=== PATIENT | male | born 1940 | race Caucasian/White ===

== ENCOUNTER 2018-10-30 00:57 | Inpatient (IN) | payer OTHER ==
[~2018-10-30] VITALS: Ht 157.5 cm; Wt 61.8 kg
[2018-10-30 01:00] VITALS: BP 176/83
--- NOTE | 2018-10-30 01:00 | NUR ---
PT AXOX4 AND AMBULATORY. GOOD HISTORIAN AND ACCOMPANIED BY SON AT BEDSIDE. CP 01/16 NONRADIATING. WILL CONTINUE TO MONITOR.
[2018-10-30] MEDS ORDERED: ASPIRIN 81 MG TAB.CHEW PO ONE (01:05)
[2018-10-30] MEDS ORDERED: NACL 0.9% 1,000 ML IV ONE (01:05)
[2018-10-30] MEDS ORDERED: NITROGLYCERIN 2% 1 GM PKT TP ONE (01:15)
[2018-10-30] MEDS ORDERED: METOPROLOL 5 MG/5 ML VIAL IVP ONE (01:15)
[2018-10-30] MEDS ORDERED: KETOROLAC 30 MG/ML VIAL IVP ONE (01:15)
[2018-10-30 01:17] LABS: BASOPHILS % (AUTO) 0.9 % (0.0-2.0); EOSINOPHILS # (AUTO) 0.1 K/uL (0-0.4); EOSINOPHILS % (AUTO) 2.2 % (0.0-4.0); HEMATOCRIT 34.5 % (36-52); HEMOGLOBIN 11.6 g/dL (12.0-18.0); LYMPHOCYTES # (AUTO) 1.8 K/uL (2.0-11.5); LYMPHOCYTES % (AUTO) 38.4 % (20.5-51.1); MEAN CORPUSCULAR HEMOGLOBIN 33 pg (27-31); MEAN CORPUSCULAR HGB CONC 34 g/dL (33-37); MEAN CORPUSCULAR VOLUME 96.7 fL (80-94); MONOCYTES # (AUTO) 0.5 K/uL (0.8-1.0); NEUTROPHILS # (AUTO) 2.3 K/uL (1.8-7.7); NEUTROPHILS % (AUTO) 48.5 % (42.2-75.2); PLATELET COUNT (AUTO) 161 K/uL (140-450); RED BLOOD CELL COUNT(AUTO) 3.57 MIL/uL (4.20-6.10); RED CELL DISTRIBUTION WIDTH 13.4 % (11.6-13.7); WHITE BLOOD COUNT (AUTO) 4.7 K/uL (4.8-10.8)
[2018-10-30 01:25] LABS: ANION GAP 9.1 (8-16); CARBON DIOXIDE 30.3 mmol/L (21-32); CHLORIDE 101 mmol/L (98-107); CREATININE 1.5 mg/dL (0.7-1.3); GLUCOSE 95 mg/dL (74-106); POTASSIUM 4.4 mmol/L (3.5-5.1); SODIUM SERUM 136 mmol/L (136-145); UREA NITROGEN, BLOOD 43 mg/dL (7-18)
[2018-10-30 01:31] LABS: ALBUMIN 3.7 g/dL (3.4-5.0); ASPARTATE AMINOTRANSFERASE 30 U/L (15-37); TOTAL BILIRUBIN 0.3 mg/dL (0.0-1.0)
[2018-10-30 01:35] LABS: PROTHROMBIN TIME 9.9 secs (10.8-13.4)
[2018-10-30] MEDS ORDERED: VITD1000 PO (01:56)
[2018-10-30] MEDS ORDERED: NIFE30TE5 PO ×2 (01:56→18:01)
[2018-10-30] MEDS ORDERED: DOL10 PO (01:56)
[2018-10-30] MEDS ORDERED: LEVO0.2T5 PO (01:56)
[2018-10-30] MEDS ORDERED: LISI-420 PO ×2 (01:56→18:01)
[2018-10-30] MEDS ORDERED: VOL25 PO (01:56)
[2018-10-30] MEDS ORDERED: DUTA0.5S2 PO (01:56)
--- NOTE | 2018-10-30 02:15 | NUR ---
ADMITTED A 77M AT [facility]. CAME BY WOODY AND ACCOMPANIED BY SON WITH CC OF CHEST PAIN SINCE 1999 LAST NIGHT. PT IS ON TELEMETRY BED-SR/BBB. AWAKE,ALERT AND ORIENTED X4. AMBULATORY. DENIES ANY DISCOMFORT NOR PAIN AT THIS TIME. PLACED COMFORTABLY IN BED. HAS HL ON THE RT FA G#[id number]. CLEAR AND PATENT. ORIENTED TO HOSPITAL ROUTINES. CALL LIGHT PLACED WITHIN EASY REACH, SIDE RAILS ARE UP X2. WILL CONTINUE TO MONITOR.
--- NOTE | 2018-10-30 02:24 | NUR ---
PT ADMITTED TO ROOM 128A AND ACCOMPANIED BY SONIZAIAH. PERSONAL BELONGINGS WITH PATIENT. PT AXOX4 AND AMBULATORY. REPORT GIVEN TO COURTNEY FRY.
[2018-10-30] MEDS ORDERED: ACETAMINOPHEN 325 MG TAB PO PRN (02:30)
[2018-10-30] MEDS ORDERED: MORPHINE SULFATE 2 MG/ML SYR IVP PRN (02:30)
[2018-10-30] MEDS ORDERED: NITROGLYCERIN 0.4 MG TAB SL PRN (02:30)
[2018-10-30] MEDS ORDERED: ONDANSETRON 4 MG/2 ML VIAL IVP PRN (02:30)
--- NOTE | 2018-10-30 03:00 | NUR ---
COLLECTED MRSA NARES SPECIMEN . SEND TO LAB.
[2018-10-30 05:00] VITALS: BP 151/86
[2018-10-30] MEDS ORDERED: INFLUENZA VIRUS VACCINE QUAD 0.5 ML SYR IMVAC PRN (05:25)
--- NOTE | 2018-10-30 06:00 | NUR ---
PT IS AWAKE. AM PO MEDS GIVEN. NO C/O ANY DISCOMFORT NOR PAIN NOTED.
[2018-10-30] MEDS ORDERED: LEVOTHYROXINE 0.1 MG TAB PO SCH (06:30)
--- NOTE | 2018-10-30 07:29 | NUR ---
ENDORSED PT IN STABLE CONDITION TO AM NURSE FOR CONTINUITY OF CARE.
--- NOTE | 2018-10-30 07:30 | NUR ---
REPORT RECEIVED FROM DENTAL HYGIENE INSTRUCTOR NURSE, PT AWAKE READING, SMILING, RESP EVEN UNLABORED ON RA, SKIN WARM DRY COLOR WNL, REVIEWED POC, PT DENIES CHEST PAIN, SOB OR OTHER DISCOMFORT, ALL SAFETY MEASURES IN PLACE, WILL CONTINUE TO MONITOR.
[2018-10-30 08:00] VITALS: BP 178/97
--- NOTE | 2018-10-30 08:00 | NUR ---
PT SITTING UP EATING BREAKFAST.
--- NOTE | 2018-10-30 08:17 | NUR ---
PATIENT HAS BEEN SCREENED AND CATEGORIZED MODERATE NUTRITION RISK. PATIENT WILL BE SEEN WITHIN 3-5 DAYS OF ADMISSION. 11/01/18DMITRI [address]
[2018-10-30] MEDS ORDERED: METHADONE 10 MG TAB PO SCH (09:00)
[2018-10-30] MEDS ORDERED: DICLOFENAC 25 MG TABEC PO SCH (09:00)
[2018-10-30] MEDS ORDERED: ECOTRIN 81 MG TABEC PO SCH (09:00)
[2018-10-30] MEDS ORDERED: LISINOPRIL 20 MG TAB PO SCH (09:00)
[2018-10-30] MEDS ORDERED: DUTASTERIDE 0.5 MG PO SCH (09:00)
[2018-10-30] MEDS ORDERED: CLINICAL MONITORING MC SCH (09:00)
[2018-10-30] MEDS ORDERED: ENOXAPARIN 40 MG/0.4 ML SYR SUBQ SCH (09:00)
[2018-10-30] MEDS ORDERED: CHOLECALCIFEROL 1,000 IU TAB PO SCH (09:00)
--- NOTE | 2018-10-30 09:45 | NUR ---
PT'S SON AT BEDSIDE, PT AWAKE ALERT CONVERSING WITHOUT PROBLEM.
[2018-10-30 10:00] LABS: CHOL/HDL RATIO 1.9 (1-4.5)
--- NOTE | 2018-10-30 10:00 | NUR ---
PER PHARMACY REQUEST, DUTASTERIDE IS NOT FORMULARY HERE, PT'S SON WILL BRING HOME SUPPLY IN LATER TODAY, WELL HOME SUPPLY OF METHADONE.
--- NOTE | 2018-10-30 10:11 | NUR ---
[facility] [phone] CALLED TO VERIFY METHADONE DOSAGE, THEY WILL FAX INFORMATION TO US
[2018-10-30 12:00] VITALS: BP 152/85
[2018-10-30] MEDS ORDERED: METHADONE 70 MG PO SCH (15:00)
--- NOTE | 2018-10-30 15:01 | NUR ---
Substance Abuse Counselor Margot and I met patient ,son Nikolay and daughter in law Harper at bedside. We explained to patient that we will obtain and verify information with him. We obtained following information from the patient ,son Nikolay and daughter in law Harper. Both son Nikolay and daughter in law Harper help patient with ADLs at home. Patient lives with them. Patient has an Advance Directive and Harper is the designated person. Copy of Advance Directive is at the pcp�s office and we asked Harper to provide us with a copy and she verbalized understanding. Patient goes to [facility] in [place]. He goes there every other Monday. Patient goes to [facility] in [place] and both son and daughter in law help him to picker his medications without any difficulty. They also help him prepare his medications weekly using the weekly pill container. Patient also verbalized that he will follow-up with his PCP Dr Blood after discharge and both daughter in law and son will provide him with transportation. Patient has a cane at home and he uses it as needed.. Patient was not receiving any home health services prior to hospitalization and was not using any DME at home. Instructed patient and family to provide discharge instructions to Dr Blood during follow-up visit, patient and family verbalized understanding. Patient has no questions and concerns at this time. Patient also verbalized that he is happy with his doctor and nurses for the care he received here at [facility]. Emphasized to patient and family to let us know if needed help, or if there�s any questions and concerns while he is here in the hospital.
[2018-10-30 16:00] VITALS: BP 159/93
[2018-10-30] MEDS ORDERED: NIFEdipine 30 MG TABER PO SCH (17:00)
--- NOTE | 2018-10-30 17:47 | NUR ---
DR BLU PABON AT BEDSIDE.
--- NOTE | 2018-10-30 19:08 | NUR ---
DC INSTRUCTION AND RX GIVEN AND EXPLAINED TO PT AND HIS SON IZAIAH, PT AND SON VERBALIZED FULL UNDERSTANDING, IV DC'D, CATH TIP INTACT, BLEEDING CONTORLLED, PT REI WELL, PT UP WALKING AROUND THE ROOM WITH STEDY GAIT, DC HOME NOW WITH SON. ALL HOME MEDS RETURNED TO PT FROM PHARMACY INCLUDING METHADONE BOTTLE X1.
[2018-10-31] MEDS ORDERED: METHADONE 70 MG PO SCH (09:00)
[2018-10-31] MEDS ORDERED: METHADONE 10 MG TAB PO SCH (09:00)
[2018-10-31] MEDS ORDERED: DUTASTERIDE 0.5MG CAP PO SCH (09:00)
--- NOTE | 2018-10-31 11:26 | NUR ---
called office of Dr Blood [phone] spoke to Gloria and made a follow-up appointment on 11/08/18 @ 1015 am, [address] [facility]. [address] [place] [id number]. Called patient and spoke to Harper daughter in law and informed her of the appointment, verbalized understanding.
== END 2018-10-30 19:20 | disposition home or self-care (01) | DRG 313 ==
LOC: MED 00:57 → MMU 01:50
PROVIDERS: ADMIT Internal Medicine Pulmonary Disease; ATTEND Internal Medicine Pulmonary Disease
DX: R07.89 Other chest pain (principal); F11.20 Opioid dependence, uncomplicated; E03.9 Hypothyroidism, unspecified; I10 Essential (primary) hypertension
CPT/HCPCS: 36415; 71045; 80053; 84484; 85025; 85610; 85730; 87081; 93005; 96361; 96374; 96375; 99285; J1650; J1885; J3490; J7030; Q0092

== ENCOUNTER 2020-12-04 21:50 | Emergency (ER) | payer OTHER ==
[~2020-12-04] VITALS: Ht 162.6 cm; Wt 77.1 kg
[~2020-12-04 21:50] MED LIST: DOL10 PO; DUTA0.5S2 PO; LEVO0.2T5 PO; LISI-487 PO; NIFE30TE5 PO; VITD1000 PO; VOL25 PO
[2020-12-04 21:56] VITALS: BP_SYST 165; BP_SYST 202; BP_DIAS 110
[2020-12-05 00:02] LABS: BASOPHILS % (AUTO) 0.7 % (0.0-2.0); EOSINOPHILS # (AUTO) 0.1 K/uL (0-0.4); EOSINOPHILS % (AUTO) 1.2 % (0.0-4.0); HEMOGLOBIN 12.1 g/dL (12.0-18.0); LYMPHOCYTES # (AUTO) 0.9 K/uL (2.0-11.5); LYMPHOCYTES % (AUTO) 17.9 % (20.5-51.1); MEAN CORPUSCULAR HEMOGLOBIN 33 pg (27-31); MEAN CORPUSCULAR HGB CONC 34 g/dL (33-37); MEAN CORPUSCULAR VOLUME 96.6 fL (80-94); MONOCYTES # (AUTO) 0.4 K/uL (0.8-1.0); MONOCYTES % (AUTO) 7.2 % (1.7-9.3); NEUTROPHILS # (AUTO) 3.7 K/uL (1.8-7.7); PLATELET COUNT (AUTO) 158 K/uL (140-450); RED BLOOD CELL COUNT(AUTO) 3.73 MIL/uL (4.20-6.10); RED CELL DISTRIBUTION WIDTH 13.7 % (11.6-13.7); WHITE BLOOD COUNT (AUTO) 5.1 K/uL (4.8-10.8)
[2020-12-05 00:11] LABS: ANION GAP 8.4 (8-16); CARBON DIOXIDE 31.8 mmol/L (21-32); CHLORIDE 101 mmol/L (98-107); CREATININE 1.2 mg/dL (0.6-1.3); GLUCOSE 109 mg/dL (74-106); POTASSIUM 4.2 mmol/L (3.5-5.1); SODIUM SERUM 137 mmol/L (136-145); UREA NITROGEN, BLOOD 25 mg/dL (7-18)
[2020-12-05 01:17] VITALS: BP 155/100
== END 2020-12-05 00:17 | disposition home or self-care (01) ==
LOC: MED 21:50
DX: I10 Essential (primary) hypertension (principal); E07.9 Disorder of thyroid, unspecified
CPT/HCPCS: 36415; 80048; 84484; 85025; 93005; 99284